=== PATIENT | female | born 1955 | race Hispanic/Latino ===

== ENCOUNTER 2017-10-24 09:57 | Day surgery (SDC) | payer MEDICARE, MEDICAID ==
[2017-10-15 08:51] VITALS: BMI 25.5
[2017-10-24] MEDS ORDERED: Midazolam 2 MG/2 ML VIAL ONE (12:35)
[2017-10-24] MEDS ORDERED: Propofol 10 mg/ml Inj (20 ML) ONE (12:36)
[2017-10-24] MEDS ORDERED: Esmolol 100 mg/10ml Inj IV ONE (12:58)
--- NOTE | 2017-10-24 13:09 | PCM.SURG1 ---
Surgeon's Initial Post Op Note - Surgeon's Notes Surgeon: Delia Mcmahan MD Silo Operator: none Type of Anesthesia: General LMA Pre-Operative Diagnosis: Postmenopausal bleeding , cervical stenosis Operative Findings: anterverted utuers , small, cervicl stnosis, souned to 5cm, bilateral ostia visualized Post-Operative Diagnosis: same as above Operation Performed: Operative hysteroscopy, fractional dilatoin and currettage Specimen/Specimens Removed: endocervical currettings, endometrial currettings Estimated Blood Loss: EBL {In ML}: 5 Blood Products Given: N/A Drains Used: No Drains Post-Op Condition: Good Date of Surgery/Procedure: 10/24/17 Time of Surgery/Procedure: 13:00
[2017-10-24 14:20] VITALS: RESP 15
[2017-10-24 15:10] VITALS: BP 123/67; PULSE 76; TEMP 97.1; O2SAT 100
--- NOTE | 2017-10-25 01:52 | OP ---
PROCEDURE DATE: 10/24/2017 SURGEON: Delia Mcmahan MD HOUSING ASSISTANT PROPERTY MANAGER: None. TYPE OF ANESTHESIA: General LMA. PREOPERATIVE DIAGNOSIS: Postmenopausal bleeding, cervical stenosis. OPERATIVE FINDINGS: Anteverted uterus, mild cervical stenosis sounded to 5 cm, bilateral ostia visualized. POSTOPERATIVE DIAGNOSIS: Postmenopausal bleeding, cervical stenosis. OPERATIONS PERFORMED: Operative hysteroscopy and fractional dilation and curettage. SPECIMENS REMOVED: Endocervical curettings, endometrial curettings. ESTIMATED BLOOD LOSS: 5 mL. BLOOD PRODUCTS: None. COMPLICATIONS: None. DESCRIPTION OF PROCEDURE: The patient was taken to the operating where she was given general anesthesia, once found to be adequate, she was placed on the operating table in the dorsal supine position with legs supported using stirrups. The patient was then prepped and draped in the usual sterile fashion. A time-out confirmed correct patient and correct procedure. A red rubber catheter was inserted into the urethra to drain the bladder; 30 mL of clear yellow urine was obtained. Following this, a Hernandez retractor was placed in the anteroposterior fornix of vagina. Cervix was adequately visualized and appeared stenotic. Following this, endocervical curettings were obtained with a Kevorkian curette and sent to pathology on [facility]. Uterus was then carefully sounded and the cervix was sequentially dilated to allow for introduction of hysteroscope under direct visualization using normal saline as the distention media. Bilateral ostia were visualized, and there were no gross masses noted. The hysteroscope was then removed and a gentle curettage was done 360 degrees. Specimen was sent to pathology and labeled as endometrial curettings. All instruments were removed. There was good hemostasis at the tenaculum puncture sites. At the end of the procedure, all needle, sponge and instrument counts were noted and correct x2. The patient tolerated the procedure well and was transferred to the recovery room in stable condition. Delia Mcmahan MD
== END 2017-10-24 15:08 | disposition home or self-care (01) ==
LOC: C.SDS 09:57
PROVIDERS: ATTEND Obstetrics & Gynecology
DX: N95.0 Postmenopausal bleeding (principal); N88.2 Stricture and stenosis of cervix uteri; N85.4 Malposition of uterus
CPT/HCPCS: 58558; 88305; J2250; J2704; J3010